=== PATIENT | female | born 1960 | race Caucasian/White ===

== ENCOUNTER → 2024-04-20 | Outpatient (CLI) | payer OTHER ==
--- NOTE | 2024-04-20 17:34 | CA ---
Transthoracic Echo Report Name: Elle Castro Age: 63 Gender: F : 1960 Exam Date: 04/20/2024 11:38 Exam Location: [place] [facility] Ht (in): 60 Wt (lb): 219 Ordering Physician: Herb Flood DO Attending/Referring Phys: Herb Flood DO Collection Support Specialist Lisa Stone RDCS Procedure CPT: Indications: R01.1 Murmur Cardiac Hx: Technical Quality: Technically difficult study Contrast 1: Definity Total Dose (mL): 3 Contrast 2: Total Dose (mL): MEASUREMENTS (Male / Female) Normal Values 2D ECHO LV Diastolic Diameter PLAX 4.4 cm 4.2 - 5.9 / 3.9 - 5.3 cm LV Systolic Diameter PLAX 3.2 cm IVS Diastolic Thickness 1.2 cm 0.6 - 1.0 / 0.6 - 0.9 cm LVPW Diastolic Thickness 1.0 cm 0.6 - 1.0 / 0.6 - 0.9 cm LV Relative Wall Thickness 0.5 LVOT Diameter 2.1 cm LV Diastolic Volume MOD BP 53.2 cm??? 67 - 155 / 56 - 104 cm??? LV Systolic Volume MOD BP 19.2 cm??? 22 - 58 / 19 - 49 cm??? LV Ejection Fraction MOD BP 63.9 % >= 55 % LV Cardiac Index MOD BP 966.9 cm???/min???m??? LV Diastolic Volume MOD 4C 57.6 cm??? LV Systolic Volume MOD 4C 26.7 cm??? LV Ejection Fraction MOD 4C 53.7 % LV Cardiac Index MOD 4C 879.3 cm???/min???m??? LV Diastolic Length 4C 7.5 cm LV Systolic Length 4C 5.7 cm LV Diastolic Volume MOD 2C 49.7 cm??? LV Systolic Volume MOD 2C 13.7 cm??? LV Ejection Fraction MOD 2C 72.3 % LV Cardiac Index MOD 2C 1020.7 cm???/min???m??? LV Diastolic Length 2C 7.6 cm LV Systolic Length 2C 5.3 cm LA Volume 45.8 cm??? 18 - 58 / 22 - 52 cm??? LA Volume Index 21.7 cm???/m??? 16 - 28 cm???/m??? Ascending Aorta Diameter 3.7 cm DOPPLER AV Peak Velocity 154.5 cm/s AV Peak Gradient 9.6 mmHg AV Mean Velocity 105.2 cm/s AV Mean Gradient 4.9 mmHg AV Velocity Time Integral 36.4 cm LVOT Peak Velocity 138.2 cm/s LVOT Peak Gradient 7.6 mmHg LVOT Velocity Time Integral 34.8 cm LVOT Stroke Volume 126.3 cm??? LVOT Stroke Volume Index 65.1 ml/m??? LVOT Cardiac Index 3590.0 cm???/min???m??? AV Area Cont Eq vti 3.5 cm??? AV Area Cont Eq pk 3.2 cm??? MV Area PHT 3.8 cm??? Mitral E Point Velocity 89.0 cm/s Mitral A Point Velocity 60.8 cm/s Mitral E to A Ratio 1.5 MV Deceleration Time 197.3 ms PV Peak Velocity 74.9 cm/s PV Peak Gradient 2.2 mmHg FINDINGS Left Ventricle Left ventricular ejection fraction is estimated at 60 %. Mildly increased septal wall thickness. Left ventricular cavity size normal. No obvious regional wall motion abnormalities. Right Ventricle Right ventricle not well visualized. Unable to estimate the right ventricular systolic pressure. Right Atrium Right atrium not well visualized. Left Atrium Normal left atrial size. Mitral Valve Structurally normal mitral valve. No evidence for mitral valve prolapse. No mitral stenosis. Trace mitral regurgitation. Aortic Valve Aortic valve not well visualized. No aortic valve stenosis or regurgitation. Tricuspid Valve Structurally normal tricuspid valve. No tricuspid stenosis. No tricuspid regurgitation. Pulmonic Valve Pulmonic valve not well visualized. No pulmonic stenosis. No pulmonic regurgitation. Pericardium No pericardial effusion. Aorta Normal size aortic root and proximal ascending aorta. CONCLUSIONS Technically suboptimal study secondary to poor echo windows Normal LV function Previewed by: Dr. Karan Townsend MD (Electronically Signed) Final Date: 20 April 2024 17:33
== END | disposition home or self-care (01) ==
LOC: RADECHMAIN 11:25
PROVIDERS: ATTEND Family Medicine
DX: R01.1 Cardiac murmur, unspecified (principal); I34.0 Nonrheumatic mitral (valve) insufficiency
CPT/HCPCS: 93306; Q9957